=== PATIENT | female | born 1955 | race Hispanic/Latino ===

== ENCOUNTER 2019-03-09 21:16 | Observation (INO) | payer MEDICAID, OTHER ==
--- NOTE | 2019-03-09 21:48 | ED PDOC ---
Arrival/HPI - General Chief Complaint: Eye Problem Time Seen by Provider: 03/09/19 21:20 Historian: Patient - History of Present Illness Narrative History of Present Illness (Text): 03/09/19 21:48 64 year old female, whose past medical history include hypertension and diabetes, presents to the emergency department for evaluation of onset of blurry vision.States symptoms began around 7 P.M. Patient had eaten prior.Symptoms exc lusive to the right eye. Patient denies any pain in her eye or headache. Patient denies any focal weakness, numbness, change in speech, or difficulty swallowing. Patient also denies any fevers, chills, chest pain, shortness of breath, dyspnea on exertion, cough, diaphoresis, abdominal pain, nausea, vomiting, diarrhea, back pain, neck pain, or any other complaint.Patient states she had taken her PM meds already including 81 mg ASA. Time/Duration: Prior to Arrival Symptom Onset: Sudden Symptom Course: Unchanged Activities at Onset: Light, Eating Context: Home Past Medical History - Provider Review Nursing Documentation Reviewed: Yes - Infectious Disease Hx of Infectious Diseases: None Family/Social History - Physician Review Nursing Documentation Reviewed: Yes Family/Social History: No Known Family HX Allergies/Home Meds Allergies/Adverse Reactions: Allergies No Known Allergies Allergy (Verified 03/09/19 21:25) Home Medications: Home Meds Medication Instructions Recorded Confirmed Aspirin [Aspirin Chewable] 1 tab PO DAILY 03/09/19 03/09/19 Atorvastatin [Lipitor] 20 mg PO DAILY 03/09/19 03/09/19 Canagliflozin/Metformin HCl 1 tab PO DAILY 03/09/19 03/09/19 [Invokamet 150-1,000 mg Tablet] Losartan [Cozaar] 100 mg PO DAILY 03/09/19 03/09/19 Review of Systems - Physician Review All systems were reviewed & negative as marked: Yes - Review of Systems Constitutional: absent: Fevers, Night Sweats Eyes: Vision Changes (Blurred vision right eye). absent: Eye Pain Respiratory: absent: SOB, Cough Cardiovascular: absent: Chest Pain, MACIAS Gastrointestinal: absent: Abdominal Pain, Diarrhea, Nausea, Vomiting Musculoskeletal: absent: Back Pain, Neck Pain Neurological: absent: Headache, Focal Weakness, Speech Changes, Other (No focal weakness) Endocrine: absent: Diaphoresis Physical Exam - Systems Exam Head: Present: Atraumatic, Normocephalic Pupils: Present: PERRL, Other (Fundi show now evidence of any retinal hemorrhages ) Extroacular Muscles: Present: EOMI Conjunctiva: Present: Normal Mouth: Present: Moist Mucous Membranes Neck: Present: Normal Range of Motion Respiratory/Chest: Present: Clear to Auscultation, Good Air Exchange. No: Respiratory Distress, Accessory Muscle Use Cardiovascular: Present: Regular Rate and Rhythm, Normal S1, S2. No: Murmurs Abdomen: No: Tenderness, Distention, Peritoneal Signs Back: Present: Normal Inspection Upper Extremity: Present: Normal Inspection. No: Cyanosis, Edema Lower Extremity: Present: Normal Inspection. No: Edema Neurological: Present: GCS=15, CN II-XII Intact, Speech Normal, Motor Func Grossly Intact, Normal Sensory Function, Gait Normal Skin: Present: Warm, Dry, Normal Color. No: Rashes Psychiatric: Present: Alert, Oriented x 3, Normal Insight, Normal Concentration Medical Decision Making ED Course and Treatment: 03/09/19 21:40 Impression: 64 year old female presents with right eye blurriness. Plan: -- Type and Screen -- CT Head -- EKG -- CMP, A1C, Lipid, Trop -- Chest X-ray -- Reassess and disposition Prior Visits: Notes and results from previous visits were reviewed. Progress Notes: 03/09/19 21:25 Code stroke called 21:25 03/09/19 01:25 EKG reviewed by me, shows: Normal sinus rhythm @ 68bpm No acute changes. 03/09/19 21:57 CT Head without Intravenous Contrast. CLINICAL HISTORY: BLURRY VISION - CODE STROKE TECHNIQUE: Axial computed tomography images of the head/brain without intravenous contrast. 948.79 mGy-cm CONTRAST: Without COMPARISON: None provided. FINDINGS: BRAIN No acute intraparenchymal hemorrhage. No mass lesion. No abnormal enhancement. No CT evidence for acute territorial infarct. No midline shift or extra-axial collections. VENTRICLES: No hydrocephalus. VASCULAR: Atherosclerotic vascular plaquing is noted within the vertebral arteries and carotid siphons bilaterally. ORBITS: The orbits are unremarkable. SINUSES AND MASTOIDS: The paranasal sinuses and mastoid air cells are clear. BONES: No fracture. IMPRESSION: 1. No acute intracranial abnormality. 2. Atherosclerotic vascular plaquing as described above. 03/09/19 22:[address] Kellogg who requests CTA head and neck. 03/09/19 00:12 CTA Head and Neck with Intravenous Contrast. CLINICAL HISTORY: PARTIAL HEMIANOPSIA RIGHT EYE TECHNIQUE: Axial CTA images of the head and neck performed with intravenous contrast. MIP reconstructed images were created and reviewed. 599.34 mGy-cm CONTRAST: With; OMNI 350 - 150 ML was injected intravenously without incident. COMPARISON: None provided. FINDINGS: VASCULATURE: NECK: COMMON CAROTID ARTERIES No significant canal stenosis. No dissection or occlusion. EXTERNAL CAROTID ARTERIES Patent. NECK: INTERNAL CAROTID ARTERIES No stenosis by NASCET criteria. No dissection or occlusion. Atherosclerotic calcific plaquing is seen within the origin of the right ICA and very minimal atherosclerotic plaquing seen in the origin of the left ICA. VERTEBRAL ARTERIES No significant canal stenosis. No dissection or occlusion. HEAD: ANTERIOR CEREBRAL ARTERIES No significant stenosis. No occlusion. No aneurysm. MIDDLE CEREBRAL ARTERIES No significant stenosis. No occlusion. No aneurysm. POSTERIOR CEREBRAL ARTERIES No significant stenosis. No occlusion. No aneurysm. BASILAR ARTERY No significant stenosis. No occlusion. No aneurysm. OTHER: SOFT TISSUES No acute finding. BONES No acute osseous abnormality. Moderate degenerative arthritis is noted within the atlanto-dens interval. IMPRESSION: 1. Minimal atherosclerotic ossific plaquing within the origin of the ICAs bilaterally; more prevalent on the right. 2. Otherwise, unremarkable CTA of the head and neck. 3. Moderate degenerative arthritis seen within the atlantodens interval. 03/10/19 00:15 At this time, results of CTA just back discussed with Dr Kellogg. Patient with some improvement in her vision,describing a partial hemianopsia earlier now improved.Patient is out of window for tPA. Aspirin only will be given as per . Patient will be admitted for further follow up and MRI study. 03/10/19 00:37 Discussed case with medical educator and Dr Navarro who accepts to the hospitalist service. - RAD Interpretation Radiology Orders: 03/09/19 21:25 HEAD W/O (CODE STROKE) [CT] Stat CHEST ONE VIEW [RAD] Stat - Medication Orders Current Medication Orders: Sodium Chloride (Sodium Chloride 0.9%) 1,000 mls @ 100 mls/hr IV .Q10H CHIKA NIHSS Scale ([place]) Time Performed: 21:20 - How Severe is the Stoke Baseline Level of Consciousness: 0=Alert LOC to Questions: 0=Both comments correct LOC to commands: 0=Obeys both correctly Best Gaze: 0=Normal Visual: 1=Partial hemianopia Facial: 0=Normal Motor Arm - Left: 0=No drift Motor Arm - Right: 0=No drift Motor Leg - Left: 0=No drift Motor Leg - Right: 0=No drift Limb Ataxia: 0=Absent Sensory: 0=Normal Best Language: 0=No aphasia Dysarthia: 0=Normal articulation Extinction & Inattention (Neglect): 0=Normal, no object Score: 1 Risk Level: Minor Stroke Risk rTPA Inclusion/Exclusion - Refusal of Treatment Patient Refused Treatment: No - Inclusion Criteria for Altepase All of the below criteria for inclusion were reviewed: Yes Patient is 18 years or Older: Yes The Clinical Diagnosis of Ischemic Stroke That is Causing a Potentially Disabling Neurological Deficit: Yes Time of Onset is Well Established to be Less Than 270 Minute Before Treatment Would Begin: Yes Risk/Benefit Discussed With Patient/Family Member Present: Yes - Exclusion Criteria for Altepase Subarachnoid hemorrhage: No Active Internal Bleeding: No Recent (within 3 months) Intracranial or Intraspinal Surgery: No Bleeding Diathesis Including but not limited to: None Current Severe Uncontrolled Hypertension: No - Warning to TPA With Conditions Following Conditions Weighed Against Anticipated Benefit: No - Scribe Statement The provider has reviewed the documentation as recorded by the Luisibashlie Jones Provider Scribe Attestation: All medical record entries made by the Scribe were at my direction and personally dictated by me. I have reviewed the chart and agree that the record accurately reflects my personal performance of the history, physical exam, medical decision making, and the department course for this patient. I have also personally directed, reviewed, and agree with the discharge instructions and disposition. Disposition/Present on Arrival - Present on Arrival Any Indicators Present on Arrival: No History of DVT/PE: No History of Uncontrolled Diabetes: No Urinary Catheter: No History of Decub. Ulcer: No History Surgical Site Infection Following: None - Disposition Have Diagnosis and Disposition been Completed?: Yes Diagnosis: Blurred vision, right eye, TIA (transient ischemic attack) Disposition: HOSPITALIZED Disposition Time: 00:34 Patient Plan: Observation Patient Problems: Current Active Problems Problem Status Onset Blurred vision, right eye Acute TIA (transient ischemic attack) Acute Condition: STABLE
[2019-03-09 22:07] LABS: BASO # 0.03 K/mm3 (0.0-2.0); BASO % 0.4 % (0.0-3.0); EOS # 0.2 (0.0-0.7); EOS % 2.8 % (1.5-5.0); HEMOGLOBIN 13.1 g/dL (12.0-16.0); LYMPH # 3.4 (1.2-3.4); LYMPH % 48.1 % (22.0-35.0); MEAN CELL VOLUME 94.8 fl (80.0-105.0); MEAN CORPUSCULAR HGB CONC 32.7 g/dl (31.0-37.0); MONO # 0.5 (0.1-0.6); MONO % 7.2 % (1.0-6.0); RBC 4.23 10^6/uL (3.5-6.1); RED CELL DISTRIBUTION WIDTH 12.8 % (11.5-14.5); WHITE BLOOD COUNT 7.1 10^3/uL (4.5-11.0)
[2019-03-09 22:21] LABS: ALB/GLOB RATIO 1.3 (1.1-1.8); ALBUMIN 4.6 g/dL (3.0-4.8); ALT/SGPT 51 U/L (7-56); AST/SGOT 48 U/L (14-36); BLOOD UREA NITROGEN 30 mg/dL (7-21); CALCIUM 9.8 mg/dL (8.4-10.5); GFR NON-AFRICAN AMERICAN 56; HDL CHOLESTEROL 56 mg/dL (29-60)
[2019-03-09 22:22] LABS: INR 1.05; PARTIAL THROMBOPLASTIN TIME 33.8 Seconds (26.9-38.3); PROTHROMBIN TIME 11.6 SECONDS (9.4-12.5)
[2019-03-09 22:32] LABS: LDL CHOLESTEROL 65 mg/dL (0-129)
[2019-03-09 22:35] LABS: TROPONIN I < 0.01 ng/mL
[2019-03-09] MEDS: Sodium Chloride 0.9% 1,000 ML IV SCH (22:38)
[2019-03-09] MEDS ORDERED: Sodium Chloride 0.9% 1,000 ML IV STA (22:43)
[2019-03-10] MEDS ORDERED: Dextrose 50% SYRINGE Inj (50 ml) IV PRN (02:33)
--- NOTE | 2019-03-10 03:03 | CP.PCM.HP ---
<LevonRaphael jacinto - Last Filed: 03/10/19 02:37> History of Present Illness - History of Present Illness History of Present Illness: Raphael Talbot DO PGY-1 H&P Note for Dr. Melanie Thurman: sudden blurry vision in right eye 64 y/o female with PMH of HTN, HLD, DM2 presents to the ED with blurry vision that started after dinner tonight. She reports seeing johnson color in the lower right visual field. She denied associate symptoms of headache, motor/sensory loss, facial droop, problem with speech or any other neurological deficit. She reports that her blurry vision improved since coming to the ED but not completely. Patient is compliant with her HTN,Dm meds. Follows up with her PCP, exercises and eats healthy diet. She denies similar symptoms or CVA, [place] in thae past. She had cardiac stress test few years ago for her family history of CAD and result is negative. Not sure if she had US carotid. Patient denied CP, SOB, palpitations, orthopnia, MACIAS, exersize intolerance, urinary/GI symptoms. 12 points ROS reviewed and otherwise negative PMHx: HTN, HLD, DM2 PSHx: cataract FH: brother of CAD, DM Social Hx: Former smoker, quit years ago, smoked 1 ppd x20 yr. Drinks socially. No illicit drug use All:NKDA Meds: lozartan, lipitor, asa 81, canagliflozin/metformin 150-1000 Present on Admission - Present on Admission Any Indicators Present on Admission: No Past Patient History - Infectious Disease Hx of Infectious Diseases: None - Past Social History Smoking Status: Never Smoked - CARDIAC Hx Hypertension: Yes - ENDOCRINE/METABOLIC Hx Diabetes Mellitus Type 2: Yes - PSYCHIATRIC Hx Substance Use: No - SURGICAL HISTORY Hx Cataract Extraction: Yes Other/Comment: thyroid biopsy - ANESTHESIA Hx Anesthesia: No Meds Allergies/Adverse Reactions: Allergies Allergy/AdvReac Type Severity Reaction Status Date / Time No Known Allergies Allergy Verified 03/09/19 21:25 Physical Exam - Constitutional Appears: Well, Non-toxic, No Acute Distress - Head Exam Head Exam: ATRAUMATIC, NORMAL INSPECTION, NORMOCEPHALIC - Eye Exam Eye Exam: EOMI, Normal appearance, PERRL Pupil Exam: NORMAL ACCOMODATION, PERRL - ENT Exam ENT Exam: Mucous Membranes Moist, Normal Exam - Neck Exam Neck exam: Positive for: Normal Inspection - Respiratory Exam Respiratory Exam: Clear to Auscultation Bilateral, NORMAL BREATHING PATTERN. absent: Rales, Rhonchi, Wheezes - Cardiovascular Exam Cardiovascular Exam: REGULAR RHYTHM, +S1, +S2. absent: Gallop, Rubs - GI/Abdominal Exam GI & Abdominal Exam: Normal Bowel Sounds, Soft. absent: Tenderness - Extremities Exam Extremities exam: Positive for: full ROM, normal capillary refill, normal inspection, pedal pulses present. Negative for: calf tenderness - Back Exam Back exam: NORMAL INSPECTION - Neurological Exam Neurological exam: Alert, CN II-XII Intact, Normal Gait, Oriented x3, Reflexes Normal - Psychiatric Exam Psychiatric exam: Normal Affect, Normal Mood - Skin Skin Exam: Dry, Intact, Normal Color, Warm Results - Vital Signs Recent Vital Signs: Last Vital Signs Temp Pulse 74 03/09/19 22:10 Resp 18 03/09/19 22:10 BP 129/67 03/09/19 22:10 Pulse Ox 97 03/09/19 22:10 - Labs Result Diagrams: 03/09/19 21:59 03/09/19 21:59 Labs: Laboratory Results - last 24 hr 03/09/19 03/09/19 03/09/19 21:25 21:59 21:59 WBC 7.1 RBC 4.23 Hgb 13.1 Hct 40.1 MCV 94.8 MCH 31.0 MCHC 32.7 RDW 12.8 Plt Count 160 MPV 10.0 Neut % (Auto) 41.5 L Lymph % (Auto) 48.1 H Whitley % (Auto) 7.2 H Eos % (Auto) 2.8 Baso % (Auto) 0.4 Lymph # (Auto) 3.4 Whitley # (Auto) 0.5 Eos # (Auto) 0.2 Baso # (Auto) 0.03 Absolute Neuts (auto) 2.93 PT 11.6 INR 1.05 APTT 33.8 Sodium Potassium Chloride Carbon Dioxide Anion Gap BUN Creatinine Est GFR ( Amer) Est GFR (Non-Af Amer) POC Glucose (mg/dL) 118 H Random Glucose Calcium Total Bilirubin AST ALT Alkaline Phosphatase Troponin I Total Protein Albumin Globulin Albumin/Globulin Ratio Triglycerides Cholesterol LDL Cholesterol Direct HDL Cholesterol Blood Type Blood Type Confirm Antibody Screen BBK History Checked 03/09/19 03/09/19 03/09/19 21:59 21:59 22:49 WBC RBC Hgb Hct MCV MCH MCHC RDW Plt Count MPV Neut % (Auto) Lymph % (Auto) Whitley % (Auto) Eos % (Auto) Baso % (Auto) Lymph # (Auto) Whitley # (Auto) Eos # (Auto) Baso # (Auto) Absolute Neuts (auto) PT INR APTT Sodium 140 Potassium 4.6 Chloride 99 Carbon Dioxide 29 Anion Gap 16 BUN 30 H Creatinine 1.0 Est GFR ( Amer) > 60 Est GFR (Non-Af Amer) 56 POC Glucose (mg/dL) Random Glucose 109 Calcium 9.8 Total Bilirubin 1.7 H AST 48 H ALT 51 Alkaline Phosphatase 47 Troponin I < 0.01 Total Protein 8.1 Albumin 4.6 Globulin 3.5 Albumin/Globulin Ratio 1.3 Triglycerides 187 H Cholesterol 141 LDL Cholesterol Direct 65 HDL Cholesterol 56 Blood Type A POSITIVE Blood Type Confirm A POSITIVE Antibody Screen Negative BBK History Checked No verified bt Assessment & Plan - Assessment and Plan (Free Text) Assessment: 64 y/o female with PMH of HTN, HLD, DM2 presents to the ED with sudden blurry vision after dinner tonight. CT head and CTA head/neck negative. tPA not administered. Admitted for further f/u Plan: Blurry vision/right hemianopsia: -likely due to TIA, symptoms partially improved. Out of window for tPA. No motor/sensory loss or other neurological deficits -ASA 325 given. continue asa81 mg -CT head: no ICH -CTA head/neck: Minimal atherosclerotic ossific plaquing within the origin of the ICAs bilaterally, otherwise unremarkable -MRI brain ordered -EKG: NSR, no ST-T changes -trop negative. continue to trnd -CXR: NAD -neuro check -neuro consulted, Dr Kellogg HTN, HLD: -continue home med losartan, lipitor -f/u lipid profile, HgA1C, TSH DM: -hold home med metformin/canagliflozin -ISS-low -accucheck -continue home med PPX: DVT: SCD GI: not indicated HHD Case reviewed and plan discussed with Dr Melanie Talbot, DO PGY1 <Genet Navarro - Last Filed: 03/10/19 06:37> Results - Vital Signs Recent Vital Signs: Last Vital Signs Temp 97.9 F 03/10/19 06:00 Pulse 82 03/10/19 06:00 Resp 20 03/10/19 06:00 BP 122/76 03/10/19 06:00 Pulse Ox 97 03/10/19 06:00 - Labs Result Diagrams: 03/09/19 21:59 03/09/19 21:59 Labs: Laboratory Results - last 24 hr 03/09/19 03/09/19 03/09/19 21:25 21:59 21:59 WBC 7.1 RBC 4.23 Hgb 13.1 Hct 40.1 MCV 94.8 MCH 31.0 MCHC 32.7 RDW 12.8 Plt Count 160 MPV 10.0 Neut % (Auto) 41.5 L Lymph % (Auto) 48.1 H Whitley % (Auto) 7.2 H Eos % (Auto) 2.8 Baso % (Auto) 0.4 Lymph # (Auto) 3.4 Whitley # (Auto) 0.5 Eos # (Auto) 0.2 Baso # (Auto) 0.03 Absolute Neuts (auto) 2.93 PT 11.6 INR 1.05 APTT 33.8 Sodium Potassium Chloride Carbon Dioxide Anion Gap BUN Creatinine Est GFR ( Amer) Est GFR (Non-Af Amer) POC Glucose (mg/dL) 118 H Random Glucose Calcium Total Bilirubin AST ALT Alkaline Phosphatase Troponin I Total Protein Albumin Globulin Albumin/Globulin Ratio Triglycerides Cholesterol LDL Cholesterol Direct HDL Cholesterol Blood Type Blood Type Confirm Antibody Screen BBK History Checked 03/09/19 03/09/19 03/09/19 21:59 21:59 22:49 WBC RBC Hgb Hct MCV MCH MCHC RDW Plt Count MPV Neut % (Auto) Lymph % (Auto) Whitley % (Auto) Eos % (Auto) Baso % (Auto) Lymph # (Auto) Whitley # (Auto) Eos # (Auto) Baso # (Auto) Absolute Neuts (auto) PT INR APTT Sodium 140 Potassium 4.6 Chloride 99 Carbon Dioxide 29 Anion Gap 16 BUN 30 H Creatinine 1.0 Est GFR ( Amer) > 60 Est GFR (Non-Af Amer) 56 POC Glucose (mg/dL) Random Glucose 109 Calcium 9.8 Total Bilirubin 1.7 H AST 48 H ALT 51 Alkaline Phosphatase 47 Troponin I < 0.01 Total Protein 8.1 Albumin 4.6 Globulin 3.5 Albumin/Globulin Ratio 1.3 Triglycerides 187 H Cholesterol 141 LDL Cholesterol Direct 65 HDL Cholesterol 56 Blood Type A POSITIVE Blood Type Confirm A POSITIVE Antibody Screen Negative BBK History Checked No verified bt Attending/Attestation - Attestation I have personally seen and examined this patient.: Yes I have fully participated in the care of the patient.: Yes I have reviewed all pertinent clinical information: Yes
[2019-03-10 04:12] VITALS: RESP 20
[2019-03-10 04:20] VITALS: BMI 34.7
[2019-03-10] MEDS ORDERED: Pantoprazole 40 mg EC Tab PO SCH (06:00)
[2019-03-10 06:12] VITALS: O2SAT 97
[2019-03-10 07:10] LABS: BASO # 0.03 K/mm3 (0.0-2.0); BASO % 0.5 % (0.0-3.0); EOS # 0.2 (0.0-0.7); EOS % 2.6 % (1.5-5.0); HEMOGLOBIN 12.3 g/dL (12.0-16.0); LYMPH # 2.6 (1.2-3.4); LYMPH % 39.7 % (22.0-35.0); MEAN CELL VOLUME 94.3 fl (80.0-105.0); MEAN CORPUSCULAR HEMOGLOBIN 30.3 pg (25.0-35.0); MEAN CORPUSCULAR HGB CONC 32.1 g/dl (31.0-37.0); MONO # 0.6 (0.1-0.6); MONO % 9.4 % (1.0-6.0); RBC 4.06 10^6/uL (3.5-6.1); RED CELL DISTRIBUTION WIDTH 12.9 % (11.5-14.5); WHITE BLOOD COUNT 6.5 10^3/uL (4.5-11.0)
[2019-03-10 07:29] LABS: LDL CHOLESTEROL 60 mg/dL (0-129)
[2019-03-10 07:31] LABS: ALB/GLOB RATIO 1.3 (1.1-1.8); ALBUMIN 4.1 g/dL (3.0-4.8); ALT/SGPT 49 U/L (7-56); AST/SGOT 42 U/L (14-36); BLOOD UREA NITROGEN 23 mg/dL (7-21); CALCIUM 9.3 mg/dL (8.4-10.5); GFR NON-AFRICAN AMERICAN > 60; HDL CHOLESTEROL 51 mg/dL (29-60)
[2019-03-10] MEDS: Insulin Reg-LOW-Coverage SC SCH ×2 (08:32→11:50)
--- NOTE | 2019-03-10 09:14 | CT ---
Date of service: 03/09/2019 PROCEDURE: CT HEAD WITHOUT CONTRAST. HISTORY: Code Stroke COMPARISON: None available. TECHNIQUE: Axial computed tomography images were obtained through the head/brain without intravenous contrast. Radiation dose: Total exam DLP = 948.79 mGy-cm. This CT exam was performed using one or more of the following dose reduction techniques: Automated exposure control, adjustment of the mA and/or kV according to patient size, and/or use of iterative reconstruction technique. FINDINGS: HEMORRHAGE: No intracranial hemorrhage. BRAIN: No mass effect or edema. No atrophy or chronic microvascular ischemic changes. VENTRICLES: Unremarkable. No hydrocephalus. CALVARIUM: Unremarkable. PARANASAL SINUSES: Unremarkable as visualized. No significant inflammatory changes. MASTOID AIR CELLS: Unremarkable as visualized. No inflammatory changes. OTHER FINDINGS: The report concurs with the preliminary [facility] report IMPRESSION: No acute intracranial findings
--- NOTE | 2019-03-10 09:20 | MRI ---
Date of service: 03/10/2019 PROCEDURE: MRI BRAIN WITHOUT CONTRAST HISTORY: sudden onset blurry vision COMPARISON: None available. TECHNIQUE: Multiplanar, multisequence MR images of the brain were obtained without intravenous contrast enhancement. FINDINGS: HEMORRHAGE: None DWI: No evidence of an acute or early subacute infarction. BRAIN PARENCHYMA: No mass effect or edema. No atrophy or chronic microvascular ischemic changes. VENTRICLES: Unremarkable. No hydrocephalus. CRANIUM: Unremarkable. ORBITS: Grossly unremarkable. PARANASAL SINUSES/MASTOIDS: Clear VASCULAR SYSTEM: Skull base flow voids intact. OTHER FINDINGS: None. IMPRESSION: Unremarkable non contrast enhanced MRI of the brain.
--- NOTE | 2019-03-10 09:44 | RAD ---
Date of service: 03/09/2019 PROCEDURE: CHEST RADIOGRAPH, 1 VIEW HISTORY: Code Stroke COMPARISON: None available. FINDINGS: LUNGS: Clear. PLEURA: No pneumothorax or pleural fluid seen. CARDIOVASCULAR: Aortic calcification normal. OSSEOUS STRUCTURES: No significant abnormalities. VISUALIZED UPPER ABDOMEN: Normal. OTHER FINDINGS: None. IMPRESSION: No active disease.
[2019-03-10] MEDS: Sodium Chloride 0.9% 1,000 ML IV SCH (10:54)
--- NOTE | 2019-03-10 12:25 | CT ---
Date of service: 03/09/2019 PROCEDURE: CT Angiography of the neck with contrast HISTORY: partial hemianopsia right eye COMPARISON: None. TECHNIQUE: Contiguous axial images of the neck were obtained from the level of the skull-base to the superior mediastinum in the arteriographic phase of enhancement. Coronal and sagittal reformats or also generated. IV contrast dose: 137 cc of Omni 350 Radiation dose: Total exam DLP = 599.34 mGy-cm. This CT exam was performed using one or more of the following dose reduction techniques: Automated exposure control, adjustment of the mA and/or kV according to patient size, and/or use of iterative reconstruction technique. FINDINGS: RIGHT CAROTID ARTERIES: Calcified plaque is seen in the proximal right internal carotid artery with a mild to moderate degree of stenosis. LEFT CAROTID ARTERIES: There is a small calcified plaque in the left internal carotid. There is a mild degree of stenosis. VERTEBRAL ARTERIES: Right Vertebral Artery: Normal. Left Vertebral Artery: Normal. OTHER FINDINGS: no aortic atherosclerotic calcification or mural plaque present. IMPRESSION: Calcified plaque is seen in the proximal right internal carotid artery with a mild to moderate degree of stenosis. There is a small calcified plaque in the left internal carotid. There is a mild degree of stenosis. CT Angiography of the Brain. HISTORY: partial hemianopsia right eye COMPARISON: None available. TECHNIQUE: CT angiography of the intracranial arteries was performed. Coronal and sagittal maximum intensity projection reformated images were generated. Radiation dose: Total exam DLP = 599.34 mGy-cm. This CT exam was performed using one or more of the following dose reduction techniques: Automated exposure control, adjustment of the mA and/or kV according to patient size, and/or use of iterative reconstruction technique. FINDINGS: INTERNAL CEREBRAL ARTERIES: Unremarkable. The skull base, petrous, cavernous and supraclinoid segments are bilaterally widely patent. ANTERIOR CEREBRAL ARTERIES: Unremarkable. A1 and A2 segments are widely patent. Smaller distal branches unremarkable, as visualized. MIDDLE CEREBRAL ARTERIES: Unremarkable. M1 and M2 segments are widely patent. Perisylvian branches grossly symmetric. POSTERIOR CIRCULATION: Basilar Artery: Unremarkable. Distal Vertebral Arteries: Unremarkable. Posterior Cerebral Arteries: Unremarkable. Posterior Inferior Cerebellar Arteries: Unremarkable. ANEURYSM/ VASCULAR MALFORMATIONS: None. OTHER FINDINGS: None. IMPRESSION: Unremarkable CT Angiography of the Brain.
[2019-03-10 13:20] VITALS: BP 109/69; TEMP 98.1
--- NOTE | 2019-03-10 14:45 | CARD ---
APPROVED REPORT Date of service: 03/10/2019 EKG Measurement Heart [id number] 180P2 [id number] <Conclusion> Normal sinus rhythm Normal ECG
--- NOTE | 2019-03-10 15:29 | CP.PCM.CON ---
History of Present Illness - History of Present Illness History of Present Illness: Neuro consult note (Dr. Kellogg): Jaylin, PGY - 2 Reason for consult: R ocular deficit Consult requsted by: Dr. Navarro 64 F with pertinent medical history of DM2, HTN, and HLD presents with 1 hour onset of R sided vision deficit. Patient denies having any symptoms like this; she does state that she had bilateral cateract surgery. She denies any weakness in her upper or lower extremities, denies any loss of sensation in any extremities, and denies any headaches. Denies pain with vision changes and denies dizziness or ataxic gait. Is very compliant with her medications; last A1C of 6.3%, 6.1% before that. Review of Systems 12 points ROS reviewed and otherwise negative PMHx: HTN, HLD, DM2 PSHx: Cataract FH: Brother of CAD, DM Social Hx: Former smoker, quit years ago, smoked 1 ppd x20 yr. Drinks socially. No illicit drug use All: NKDA Meds: Losartan, lipitor, asa 81, canagliflozin/metformin 150-1000 Past Patient History - Infectious Disease Hx of Infectious Diseases: None - Past Social History Smoking Status: Former Smoker - CARDIAC Hx Cardiac Disorders: Yes Hx Hypercholesterolemia: Yes Hx Hypertension: Yes - HEENT Hx HEENT Problems: Yes Hx Cataracts: Yes (extraction) - ENDOCRINE/METABOLIC Hx Diabetes Mellitus Type 2: Yes - MUSCULOSKELETAL/RHEUMATOLOGICAL Hx Falls: No - PSYCHIATRIC Hx Substance Use: No - SURGICAL HISTORY Other/Comment: thyroid biopsy - ANESTHESIA Hx Anesthesia: No Meds Allergies/Adverse Reactions: Allergies Allergy/AdvReac Type Severity Reaction Status Date / Time No Known Allergies Allergy Verified 03/09/19 21:25 - Medications Medications: Current Medications Aspirin (Aspirin Chewable) 81 mg PO DAILY [facility]IKA Last Admin: 03/10/19 10:54 Dose: 81 mg Atorvastatin Calcium (Lipitor) 20 mg PO DAILY [facility]IKA Last Admin: 03/10/19 10:54 Dose: 20 mg Dextrose (Dextrose 50% Inj) 0 ml IV STAT PRN; Protocol PRN Reason: Hypoglycemia Protocol Sodium Chloride (Sodium Chloride 0.9%) 1,000 mls @ 100 mls/hr IV .Q10H [facility] Last Admin: 03/10/19 10:54 Dose: Not Given Dextrose (Dextrose 5% In Water 1000 Ml) 1,000 mls @ 0 mls/hr IV .Q0M PRN; Protocol PRN Reason: Hypoglycemia Protocol Insulin Human Regular (Humulin R Low) 0 units SC ACHS [facility]; Protocol Last Admin: 03/10/19 11:50 Dose: Not Given Losartan Potassium (Cozaar) 100 mg PO DAILY [facility] Last Admin: 03/10/19 10:54 Dose: 100 mg Pantoprazole Sodium (Protonix Ec Tab) 40 mg PO 0600 [facility] Last Admin: 03/10/19 06:59 Dose: 40 mg Physical Exam - Constitutional Appears: Well - Head Exam Head Exam: ATRAUMATIC, NORMAL INSPECTION, NORMOCEPHALIC - Eye Exam Eye Exam: EOMI, Normal appearance, PERRL Pupil Exam: NORMAL ACCOMODATION, PERRL - ENT Exam ENT Exam: Mucous Membranes Moist, Normal Exam - Neck Exam Neck exam: Positive for: Normal Inspection - Respiratory Exam Respiratory Exam: Clear to Auscultation Bilateral, NORMAL BREATHING PATTERN - Cardiovascular Exam Cardiovascular Exam: REGULAR RHYTHM - GI/Abdominal Exam GI & Abdominal Exam: Normal Bowel Sounds, Soft. absent: Tenderness - Extremities Exam Extremities exam: Positive for: normal inspection - Back Exam Back exam: NORMAL INSPECTION - Neurological Exam Neurological exam: Alert, CN II-XII Intact, Normal Gait, Oriented x3, Reflexes Normal Additional comments: Completely benign Neuro exam. Of note - patient has central vision impairment in right macular field. - Psychiatric Exam Psychiatric exam: Normal Affect, Normal Mood - Skin Skin Exam: Dry, Intact, Normal Color, Warm Results - Vital Signs Recent Vital Signs: Last Vital Signs Temp 98.1 F 03/10/19 12:00 Pulse 69 03/10/19 12:00 Resp 20 03/10/19 12:00 BP 109/69 03/10/19 12:00 Pulse Ox 97 03/10/19 06:00 - Labs Result Diagrams: 03/10/19 06:30 03/10/19 06:30 Labs: Laboratory Results - last 24 hr 03/09/19 03/09/19 03/09/19 21:25 21:59 21:59 WBC 7.1 RBC 4.23 Hgb 13.1 Hct 40.1 MCV 94.8 MCH 31.0 MCHC 32.7 RDW 12.8 Plt Count 160 MPV 10.0 Neut % (Auto) 41.5 L Lymph % (Auto) 48.1 H Turner % (Auto) 7.2 H Eos % (Auto) 2.8 Baso % (Auto) 0.4 Lymph # (Auto) 3.4 Turner # (Auto) 0.5 Eos # (Auto) 0.2 Baso # (Auto) 0.03 Absolute Neuts (auto) 2.93 PT 11.6 INR 1.05 APTT 33.8 Sodium Potassium Chloride Carbon Dioxide Anion Gap BUN Creatinine Est GFR ( Amer) Est GFR (Non-Af Amer) POC Glucose (mg/dL) 118 H Random Glucose Hemoglobin A1c Calcium Phosphorus Magnesium Total Bilirubin AST ALT Alkaline Phosphatase Troponin I Total Protein Albumin Globulin Albumin/Globulin Ratio Triglycerides Cholesterol LDL Cholesterol Direct HDL Cholesterol TSH 3rd Generation Blood Type Blood Type Confirm Antibody Screen BBK History Checked 03/09/19 03/09/19 03/09/19 21:59 21:59 21:59 WBC RBC Hgb Hct MCV MCH MCHC RDW Plt Count MPV Neut % (Auto) Lymph % (Auto) Turner % (Auto) Eos % (Auto) Baso % (Auto) Lymph # (Auto) Turner # (Auto) Eos # (Auto) Baso # (Auto) Absolute Neuts (auto) PT INR APTT Sodium 140 Potassium 4.6 Chloride 99 Carbon Dioxide 29 Anion Gap 16 BUN 30 H Creatinine 1.0 Est GFR ( Amer) > 60 Est GFR (Non-Af Amer) 56 POC Glucose (mg/dL) Random Glucose 109 Hemoglobin A1c 6.4 Calcium 9.8 Phosphorus Magnesium Total Bilirubin 1.7 H AST 48 H ALT 51 Alkaline Phosphatase 47 Troponin I < 0.01 Total Protein 8.1 Albumin 4.6 Globulin 3.5 Albumin/Globulin Ratio 1.3 Triglycerides 187 H Cholesterol 141 LDL Cholesterol Direct 65 HDL Cholesterol 56 TSH 3rd Generation Blood Type A POSITIVE Blood Type Confirm Antibody Screen Negative BBK History Checked No verified bt 03/09/19 03/10/19 03/10/19 22:49 06:30 06:30 WBC 6.5 RBC 4.06 Hgb 12.3 Hct 38.3 MCV 94.3 MCH 30.3 MCHC 32.1 RDW 12.9 Plt Count 137 MPV 10.0 Neut % (Auto) 47.8 L Lymph % (Auto) 39.7 H Turner % (Auto) 9.4 H Eos % (Auto) 2.6 Baso % (Auto) 0.5 Lymph # (Auto) 2.6 Turner # (Auto) 0.6 Eos # (Auto) 0.2 Baso # (Auto) 0.03 Absolute Neuts (auto) 3.12 PT INR APTT Sodium 141 Potassium 4.3 Chloride 106 Carbon Dioxide 26 Anion Gap 12 BUN 23 H Creatinine 0.9 Est GFR ( Amer) > 60 Est GFR (Non-Af Amer) > 60 POC Glucose (mg/dL) Random Glucose 101 Hemoglobin A1c Calcium 9.3 Phosphorus 3.6 Magnesium 1.9 Total Bilirubin 1.5 H AST 42 H ALT 49 Alkaline Phosphatase 45 Troponin I Total Protein 7.2 Albumin 4.1 Globulin 3.1 Albumin/Globulin Ratio 1.3 Triglycerides 132 Cholesterol 132 LDL Cholesterol Direct 60 HDL Cholesterol 51 TSH 3rd Generation Blood Type Blood Type Confirm A POSITIVE Antibody Screen BBK History Checked 03/10/19 03/10/19 03/10/19 06:30 07:24 11:22 WBC RBC Hgb Hct MCV MCH MCHC RDW Plt Count MPV Neut % (Auto) Lymph % (Auto) Turner % (Auto) Eos % (Auto) Baso % (Auto) Lymph # (Auto) Turner # (Auto) Eos # (Auto) Baso # (Auto) Absolute Neuts (auto) PT INR APTT Sodium Potassium Chloride Carbon Dioxide Anion Gap BUN Creatinine Est GFR ( Amer) Est GFR (Non-Af Amer) POC Glucose (mg/dL) 121 H 113 H Random Glucose Hemoglobin A1c Calcium Phosphorus Magnesium Total Bilirubin AST ALT Alkaline Phosphatase Troponin I Total Protein Albumin Globulin Albumin/Globulin Ratio Triglycerides Cholesterol LDL Cholesterol Direct HDL Cholesterol TSH 3rd Generation 0.66 Blood Type Blood Type Confirm Antibody Screen BBK History Checked Assessment & Plan - Assessment and Plan (Free Text) Assessment: 64 F with pertinent Hx of HTN, HLD, DM presents with subjective acute painless vision loss. Opthalmologic exam reveals in-tact red reflex, no mariano red macula, and Neuro exam reveals no facial weakness, intact EOM, intact PERRLA. No extremity weakness or loss of sensation. Head CT and MRI are negative for acute stroke or ICH; H/N CTA reveals mild to moderate R Prox ICA and mild L ICA stenosis. At this time, no acute stroke or TIA is suspected. Plan Acute painless visual field deficit - Patient should follow up with her opthalmologist - After thorough review of laboratory values, imaging, and physical exam findings, patient does not seem to have had an acute stroke Thank you for this consult, feel free to re-consult as necessary
--- NOTE | 2019-03-10 17:14 | CP.PCM.DIS ---
<Jenae Brown - Last Filed: 03/10/19 17:00> Provider - Provider Date of Admission: 03/10/19 00:38 Attending physician: Mena Hooper DO Consults: 03/09/19 21:25 Stroke Team Consult Stat Comment: Consulting Provider: Neurohospitalist Consulting Physician: NEUROHOSP Neurohospitalist for Consult: Ramakrishna Li Neurohospitalist for Consult: Trisha Kellogg Reason for Consult: blurred vision 03/10/19 03:44 Social Work Referral Routine Comment: admission assessment protocol Physician Instructions: Reason For Exam: Hannah score of 7 Time Spent in preparation of Discharge (in minutes): 60 Hospital Course - Lab Results Lab Results: Most Recent Lab Values WBC 6.5 10^3/uL (4.5-11.0) 03/10/19 06:30 RBC 4.06 10^6/uL (3.5-6.1) 03/10/19 06:30 Hgb 12.3 g/dL (12.0-16.0) 03/10/19 06:30 Hct 38.3 % (36.0-48.0) 03/10/19 06:30 MCV 94.3 fl (80.0-105.0) 03/10/19 06:30 MCH 30.3 pg (25.0-35.0) 03/10/19 06:30 MCHC 32.1 g/dl (31.0-37.0) 03/10/19 06:30 RDW 12.9 % (11.5-14.5) 03/10/19 06:30 Plt Count 137 10^3/uL (120.0-450.0) 03/10/19 06:30 MPV 10.0 fl (7.0-11.0) 03/10/19 06:30 Neut % (Auto) 47.8 % (50.0-68.0) L 03/10/19 06:30 Lymph % (Auto) 39.7 % (22.0-35.0) H 03/10/19 06:30 Morris % (Auto) 9.4 % (1.0-6.0) H 03/10/19 06:30 Eos % (Auto) 2.6 % (1.5-5.0) 03/10/19 06:30 Baso % (Auto) 0.5 % (0.0-3.0) 03/10/19 06:30 Lymph # (Auto) 2.6 (1.2-3.4) 03/10/19 06:30 Morris # (Auto) 0.6 (0.1-0.6) 03/10/19 06:30 Eos # (Auto) 0.2 (0.0-0.7) 03/10/19 06:30 Baso # (Auto) 0.03 K/mm3 (0.0-2.0) 03/10/19 06:30 Absolute Neuts (auto) 3.12 (1.4-6.5) 03/10/19 06:30 PT 11.6 SECONDS (9.4-12.5) 03/09/19 21:59 INR 1.05 03/09/19 21:59 APTT 33.8 Seconds (26.9-38.3) 03/09/19 21:59 Sodium 141 mmol/L (132-148) 03/10/19 06:30 Potassium 4.3 mmol/L (3.6-5.0) 03/10/19 06:30 Chloride 106 mmol/L (98-107) 03/10/19 06:30 Carbon Dioxide 26 mmol/L (21-33) 03/10/19 06:30 Anion Gap 12 (10-20) 03/10/19 06:30 BUN 23 mg/dL (7-21) H 03/10/19 06:30 Creatinine 0.9 mg/dl (0.7-1.2) 03/10/19 06:30 Est GFR ( Amer) > 60 03/10/19 06:30 Est GFR (Non-Af Amer) > 60 03/10/19 06:30 POC Glucose (mg/dL) 128 mg/dL (65-110) H 03/10/19 16:20 Random Glucose 101 mg/dL (70-110) 03/10/19 06:30 Hemoglobin A1c 6.4 % (4.2-6.5) 03/09/19 21:59 Calcium 9.3 mg/dL (8.4-10.5) 03/10/19 06:30 Phosphorus 3.6 mg/dL (2.5-4.5) 03/10/19 06:30 Magnesium 1.9 mg/dL (1.7-2.2) 03/10/19 06:30 Total Bilirubin 1.5 mg/dL (0.2-1.3) H 03/10/19 06:30 AST 42 U/L (14-36) H 03/10/19 06:30 ALT 49 U/L (7-56) 03/10/19 06:30 Alkaline Phosphatase 45 U/L (38-126) 03/10/19 06:30 Troponin I < 0.01 ng/mL 03/09/19 21:59 Total Protein 7.2 g/dL (5.8-8.3) 03/10/19 06:30 Albumin 4.1 g/dL (3.0-4.8) 03/10/19 06:30 Globulin 3.1 gm/dL 03/10/19 06:30 Albumin/Globulin Ratio 1.3 (1.1-1.8) 03/10/19 06:30 Triglycerides 132 mg/dL (35-160) 03/10/19 06:30 Cholesterol 132 mg/dL (130-200) 03/10/19 06:30 LDL Cholesterol Direct 60 mg/dL (0-129) 03/10/19 06:30 HDL Cholesterol 51 mg/dL (29-60) 03/10/19 06:30 TSH 3rd Generation 0.66 mIU/mL (0.46-4.68) 03/10/19 06:30 Blood Type A POSITIVE 03/09/19 21:59 Blood Type Confirm A POSITIVE 03/09/19 22:49 Antibody Screen Negative 03/09/19 21:59 BBK History Checked No verified bt 03/09/19 21:59 - Hospital Course Hospital Course: Jenae Brown, PGY-1, Internal Medicine Discharge Summary for Dr. Hooper 64 year old female with past medical history of hypertension, hyperlipidemia, d iabetes mellitus type II presented to the emergency department with blurry vision of the right eye that started after dinner last night. She reports seeing johnson color in the lower right visual field which slowly ascended. She denied any associated symptoms including headache, motor/sensory loss, facial droop, problem with speech or any other neurological deficit. Patient blurry vision has improved throughout the admission but is still mildly present. Patient has had bilateral cataract surgery 12 years ago. She was seen by her opthalmologist 3 months ago and was found to have no concerns at that time. Upon admission, head CT showed no signs of ischemia. Brain MRI showed no signs of ischemia. CTA of head and neck shows calcified plaque in proximal right ICA with mild to moderate degree of stenosis. There was a small calcified plaque in left internal carotid artery. There were no acute findings found on CTA. EKG on admission showed normal sinus rhythm. Troponinx1 was negative. Hemoglobin A1c was 6.4. TSH was 0.66. Lipid panel was unremarkable. Aspirin 325 was given in the emergency department and patient was started on aspirin 81 mg daily and lipitor 20 mg daily. Neurology, Dr. Kellogg, was consulted, who recommended patient to see opthalmologist. Patient was deemed to not have an acute stroke. Patient was found to be stable and ready for discharge. Patient was told to take all home medications as prescribed, including aspirin 81 mg daily and atorvastatin 20 mg daily. As she was diagnosed with carotid artery stenosis, she was asked to follow up with PCP for further monitoring. She was asked to follow up with opthalmologist as soon as possible. She was asked to follow up with PCP in 3-5 days. She was asked to go to the nearest emergency room if she had any new or concerning symptoms. Discharge Diagnoses Right hemianopsia Hypertension Hyperlipidemia Diabetes Mellitus type II - Date & Time of H&P Date of H&P: 03/10/19 Time of H&P: 02:37 Discharge Exam - Head Exam Head Exam: ATRAUMATIC, NORMAL INSPECTION, NORMOCEPHALIC - Eye Exam Eye Exam: EOMI, Normal appearance, PERRL Pupil Exam: PERRL - Respiratory Exam Respiratory Exam: Clear to PA & Lateral, NORMAL BREATHING PATTERN - Cardiovascular Exam Cardiovascular Exam: REGULAR RHYTHM, RRR, +S1, +S2. absent: Clicks, Gallop, Rubs - GI/Abdominal Exam GI & Abdominal Exam: Normal Bowel Sounds, Soft. absent: Distended, Firm, Guarding, Tenderness - Extremities Exam Extremities exam: full ROM, normal capillary refill, normal inspection - Back Exam Back exam: FULL ROM - Neurological Exam Neurological exam: Alert, CN II-XII Intact, Normal Gait, Oriented x3 - Psychiatric Exam Psychiatric exam: Normal Affect, Normal Mood - Skin Skin Exam: Dry, Intact, Normal Color Discharge Plan - Follow Up Plan Condition: STABLE Disposition: HOME/ ROUTINE Instructions: Stroke (DC) Additional Instructions: Patient Instructions: 1. Please continue all home medications as prescribed. You are not being discharged on new medications. - Continue aspirin 81 mg 1 tablet via mouth once per day - Continue atorvastatin 20 mg 1 tablet via mouth at night time 2. You were diagnosed with carotid stenosis (mild to moderate narrowing of the carotid arteries). Please follow up with your primary care physician for follow up imaging and monitoring. Continue aspirin and Lipitor for this. 3. Please follow up with your wax pumper as soon as possible from discharge. 4. Follow up with your primary care doctor within 3-5 days. 5. Please go to the nearest emergency room for evaluation if symptoms worsen or you experience new concerning symptoms. Referrals: Elfego Martinez MD [Family Provider] - Trisha Kellogg MD [Staff Provider] - <Mena Hooper - Last Filed: 03/11/19 14:06> Provider - Provider Date of Admission: 03/10/19 00:38 Attending physician: Mena Hooper DO Consults: 03/09/19 21:25 Stroke Team Consult Stat Comment: Consulting Provider: Neurohospitalist Consulting Physician: NEUROHOSP Neurohospitalist for Consult: Ramakrishna Li Neurohospitalist for Consult: Trisha Kellogg Reason for Consult: blurred vision 03/10/19 03:44 Social Work Referral Routine Comment: admission assessment protocol Physician Instructions: Reason For Exam: Hannah score of 7 Hospital Course - Lab Results Lab Results: Most Recent Lab Values WBC 6.5 10^3/uL (4.5-11.0) 03/10/19 06:30 RBC 4.06 10^6/uL (3.5-6.1) 03/10/19 06:30 Hgb 12.3 g/dL (12.0-16.0) 03/10/19 06:30 Hct 38.3 % (36.0-48.0) 03/10/19 06:30 MCV 94.3 fl (80.0-105.0) 03/10/19 06:30 MCH 30.3 pg (25.0-35.0) 03/10/19 06:30 MCHC 32.1 g/dl (31.0-37.0) 03/10/19 06:30 RDW 12.9 % (11.5-14.5) 03/10/19 06:30 Plt Count 137 10^3/uL (120.0-450.0) 03/10/19 06:30 MPV 10.0 fl (7.0-11.0) 03/10/19 06:30 Neut % (Auto) 47.8 % (50.0-68.0) L 03/10/19 06:30 Lymph % (Auto) 39.7 % (22.0-35.0) H 03/10/19 06:30 Morris % (Auto) 9.4 % (1.0-6.0) H 03/10/19 06:30 Eos % (Auto) 2.6 % (1.5-5.0) 03/10/19 06:30 Baso % (Auto) 0.5 % (0.0-3.0) 03/10/19 06:30 Lymph # (Auto) 2.6 (1.2-3.4) 03/10/19 06:30 Morris # (Auto) 0.6 (0.1-0.6) 03/10/19 06:30 Eos # (Auto) 0.2 (0.0-0.7) 03/10/19 06:30 Baso # (Auto) 0.03 K/mm3 (0.0-2.0) 03/10/19 06:30 Absolute Neuts (auto) 3.12 (1.4-6.5) 03/10/19 06:30 PT 11.6 SECONDS (9.4-12.5) 03/09/19 21:59 INR 1.05 03/09/19 21:59 APTT 33.8 Seconds (26.9-38.3) 03/09/19 21:59 Sodium 141 mmol/L (132-148) 03/10/19 06:30 Potassium 4.3 mmol/L (3.6-5.0) 03/10/19 06:30 Chloride 106 mmol/L (98-107) 03/10/19 06:30 Carbon Dioxide 26 mmol/L (21-33) 03/10/19 06:30 Anion Gap 12 (10-20) 03/10/19 06:30 BUN 23 mg/dL (7-21) H 03/10/19 06:30 Creatinine 0.9 mg/dl (0.7-1.2) 03/10/19 06:30 Est GFR ( Amer) > 60 03/10/19 06:30 Est GFR (Non-Af Amer) > 60 03/10/19 06:30 POC Glucose (mg/dL) 128 mg/dL (65-110) H 03/10/19 16:20 Random Glucose 101 mg/dL (70-110) 03/10/19 06:30 Hemoglobin A1c 6.4 % (4.2-6.5) 03/09/19 21:59 Calcium 9.3 mg/dL (8.4-10.5) 03/10/19 06:30 Phosphorus 3.6 mg/dL (2.5-4.5) 03/10/19 06:30 Magnesium 1.9 mg/dL (1.7-2.2) 03/10/19 06:30 Total Bilirubin 1.5 mg/dL (0.2-1.3) H 03/10/19 06:30 AST 42 U/L (14-36) H 03/10/19 06:30 ALT 49 U/L (7-56) 03/10/19 06:30 Alkaline Phosphatase 45 U/L (38-126) 03/10/19 06:30 Troponin I < 0.01 ng/mL 03/09/19 21:59 Total Protein 7.2 g/dL (5.8-8.3) 03/10/19 06:30 Albumin 4.1 g/dL (3.0-4.8) 03/10/19 06:30 Globulin 3.1 gm/dL 03/10/19 06:30 Albumin/Globulin Ratio 1.3 (1.1-1.8) 03/10/19 06:30 Triglycerides 132 mg/dL (35-160) 03/10/19 06:30 Cholesterol 132 mg/dL (130-200) 03/10/19 06:30 LDL Cholesterol Direct 60 mg/dL (0-129) 03/10/19 06:30 HDL Cholesterol 51 mg/dL (29-60) 03/10/19 06:30 TSH 3rd Generation 0.66 mIU/mL (0.46-4.68) 03/10/19 06:30 Blood Type A POSITIVE 03/09/19 21:59 Blood Type Confirm A POSITIVE 03/09/19 22:49 Antibody Screen Negative 03/09/19 21:59 BBK History Checked No verified bt 03/09/19 21:59 Attending/Attestation - Attestation I have personally seen and examined this patient.: Yes I have fully participated in the care of the patient.: Yes I have reviewed all pertinent clinical information, including history, physical exam and plan: Yes Notes (Text): Please note this DC summary is for 03/10/19 Patient seen and examined by me with resident at approximately 10:15AM and prior to discharge on 03/10/19. Case including discharge plan discussed with resident. Agree with above with following additions/corrections. Patient is a 64-year-old female past medical history significant for hypertension, hyperlipidemia, and type 2 diabetes that presented to the emergency room with sudden blurry vision in the right eye. Please see H&P for full details. Patient was found to have right eye blurriness. Head CT per radiology showed no acute intracranial findings. Neck CTA per radiologist showed calcified plaque is seen in the proximal right internal carotid artery with a [id number] degree of stenosis, small calcified plaque in the left internal carotid, mild degree of stenosis. CTA brain per radiologist showed unremarkable CT angiography of the brain. Brain MRI per radiologist showed unremarkable noncontrast enhanced MRI of the brain. Patient was continued on her home aspirin and Lipitor. Carotid stenosis was discussed with patient. Patient was seen by neurology team. Per neurology team, patient with central vision impairment in right macular field, patient to follow-up with wax pumper. Patient stated that she does have an wax pumper and she will likely be able to follow-up with ophthalmology on 03/13/2019. Blurriness did improve following day of admission. Patient was continued on home Cozaar for hypertension and Lipitor for hyperlipidemia. Patient was placed on insulin sliding scale for type 2 diabetes. Patient was feeling better and was cleared for discharge by neurologist. Patient was discharged home. On day of discharge, patient stated she was feeling better. Right eye blurriness improved but was still present. No headaches or dizziness. No change in speech. No lightheadedness. No extremity weakness. Patient denied chest pain or palpitations. No shortness of breath. No nausea, vomiting, or abdominal pain. Patient was tolerating diet well. No fevers or chills. No dysuria or burning with urination. Physical exam: General: Awake and alert lying in bed in no acute distress HEENT: Normocephalic, atraumatic. Extraocular muscles intact. Pupils equal and reactive, no scleral icterus. Oropharynx pink and moist. No pharyngeal erythema or exudate noted. Neck is supple. Cardiovascular: Regular rhythm. Normal S1 and S2. No murmurs, rubs, or gallops appreciated Pulmonary: Normal respiratory effort. No rhonchi, rales, or wheezing apprecia courtney Gastrointestinal: Soft, nondistended. No abdominal tenderness. Positive bowel sounds all 4 quadrants. No guarding. Musculoskeletal: No calf tenderness. No edema. No calf tenderness. Central nervous system: AAOx3. NIHSS 0. CN 2-12 grossly intact. Dermatologic: Skin warm and dry. Please see chart for full details. Follow up instructions: Patient to follow up with primary care doctor within 3-5 days. Patient to continue home medications. Patient to see her wax pumper as soon as possible. All instructions explained to the patient in detail. Patient both understands and agrees to all instructions. Written instructions also given. Time spent in discharging the patient including chart review, medication reconciliation, discussion with the patient, medical facilities section director, consultants, and nursing staff was approximately 40 minutes.
[2019-03-10 17:34] VITALS: PULSE 71
== END 2019-03-10 17:28 | disposition home or self-care (01) ==
LOC: ED 21:16 → ERH 03-10 00:38 → 2RSO 03-10 03:05
PROVIDERS: ADMIT Hospitalist; ATTEND Hospitalist
DX: H53.461 Homonymous bilateral field defects, right side (principal); H53.8 Other visual disturbances; I10 Essential (primary) hypertension; I65.22 Occlusion and stenosis of left carotid artery; M19.90 Unspecified osteoarthritis, unspecified site; E78.5 Hyperlipidemia, unspecified; E11.9 Type 2 diabetes mellitus without complications; Z79.84 Long term (current) use of oral hypoglycemic drugs; Z79.82 Long term (current) use of aspirin; Z87.891 Personal history of nicotine dependence; Z82.49 Family history of ischemic heart disease and other diseases of the circulatory system; Z83.3 Family history of diabetes mellitus
CPT/HCPCS: 36415; 70450; 70496; 70498; 70551; 71045; 80053; 80061; 82948; 83036; 83735; 84100; 84443; 84484; 85025; 85610; 85730; 86850; 86900; 93005; 96360; 97161; 99285; G0378; G8978; G8979; G8980; J7030; Q9967